=== PATIENT | male | born 1950 | race Caucasian/White ===

== ENCOUNTER 2016-08-16 09:25 | Emergency (ER) | payer MEDICARE, BC ==
--- NOTE | 2016-08-16 10:25 | ERPHSYRPT ---
- History of Present Illness Time Seen by Provider: 08/16/16 10:10 Source: patient Exam Limitations: no limitations Patient Subjective Stated Complaint: PT HERE FOR PAIN TO BOTTOM OF RIGHT FOOT, NO INJURY NOTED. PAIN SINCE LAST NIGHT Triage Nursing Assessment: PT HAS NO BRUISING OR ABRSIONS NOTED TO RIGHT FOOT, SLIGHT SWELLING Physician History: Walked in tennis shoes at festival yesterday. No known trauma or insect bite. Occurred: yesterday Quality: constant, sharpness Severity of Pain-Max: mild Severity of Pain-Current: mild Lower Extremities Pain: foot: right (to ball of foot) Modifying Factors: Improves With: movement (or walking worsens) Associated Symptoms: none Allergies/Adverse Reactions: No Known Drug Allergies Allergy (Verified 08/16/16 09:48) Home Medications: Cilostazol 100 mg PO BID 07/26/16 [History] Glipizide 10 mg [Glucotrol 10 MG] 10 mg PO UD 07/26/16 [History] Ibuprofen 800 mg PO BID 07/26/16 [History] Insulin Glargine [Lantus Insulin] 45 unit SQ DAILY 07/26/16 [History] Liraglutide [Victoza 2-Rashard] 1.2 mg SQ DAILY 07/26/16 [History] Loratadine 10 mg [Claritin 10 mg] 10 mg PO DAILY PRN 07/26/16 [History] Metformin HCl 500 mg [Glucophage 500 MG] 500 mg PO BID 07/26/16 [History] Hx Influenza Vaccination/Date Given: Yes Hx Pneumococcal Vaccination/Date Given: No Immunizations Up to Date: Yes - Review of Systems Constitutional: No Symptoms Eyes: No Symptoms Ears, Nose, & Throat: No Symptoms Respiratory: No Symptoms Cardiac: No Symptoms Abdominal/Gastrointestinal: No Symptoms Genitourinary Symptoms: No Symptoms Musculoskeletal: No Symptoms Neurological: No Symptoms Psychological: No Symptoms Endocrine: No Symptoms Hematologic/Lymphatic: No Symptoms - Past Medical History Pertinent Past Medical History: Yes Neurological History: Peripheral Neuropathy Cardiac History: Congenital Heart Disease Endocrine Medical History: Diabetes Type II GI Medical History: Gallbladder Disease Other Medical History: VASCULAR PROBLEMS TO LEFT - Past Surgical History Past Surgical History: Yes Cardiac: Cardiac Catheterization, Cardiac Stent Musculoskeletal: Orthopedic Surgery Other Surgical History: BILAT KNEE, ANKLE ,ELBOWS.SHOULDER, WRIST - Social History Smoking Status: Current every day smoker Exposure to second hand smoke: Yes Drug Use: none Patient Lives Alone: No - Nursing Vital Signs Nursing Vital Signs: Initial Vital Signs Temperature 98.0 F Pulse Rate 66 Respiratory Rate 16 Blood Pressure [] 131/76 Pain Intensity 5 - Physical Exam General Appearance: mild distress Eyes, Ears, Nose, Throat Exam: normal ENT inspection, pharynx normal Neck Exam: normal inspection, non-tender, supple, full range of motion Cardiovascular/Respiratory Exam: chest non-tender, normal breath sounds Gastrointestinal/Abdominal Exam: non-tender, soft Hips Exam: bilateral: non-tender, normal range of motion, no evidence of injury Legs Exam: bilateral leg: non-tender, normal inspection, normal range of motion , no evidence of injury Knees Exam: bilateral knee: non-tender, normal inspection, normal range of motion, no evidence of injury Ankle Exam: bilateral ankle: non-tender, normal inspection, normal range of motion, no evidence of injury Foot Exam: right foot: non-tender, normal inspection, normal range of motion, no evidence of injury, left foot: pain, soft tissue tenderness, swelling Neuro/Tendon Exam: normal motor functions, normal tendon functions, responds to pain, no evidence tendon injury Mental Status Exam: alert, oriented x 3, cooperative Skin Exam: normal color, warm, dry SpO2 Interpretation: normal SpO2: 98 Oxygen Delivery: Room Air - Course Nursing assessment & vital signs reviewed: Yes - Radiology Exams foot X-ray Interpretation: Teleradiologist Report, Negative, No Fracture Ordered Tests: Active Orders 24 hr Category Date Time Status FOOT (2 VIEWS) Stat Exams 08/16/16 10:21 Completed - Progress Progress: unchanged Will see patient in: office (with PCP 1 week) Counseled pt/family regarding: diagnosis, need for follow-up, rad results - Departure Time of Disposition: 11:00 Departure Disposition: Home Clinical Impression: Contusion of foot Qualifiers: Encounter type: initial encounter Laterality: right Qualified Code(s): S90.31XA - Contusion of right foot, initial encounter Condition: Stable Critical Care Time: No
--- NOTE | 2016-08-16 10:43 | XRAY ---
Indication: Ball of foot pain. No known injury. Comparison: None 2 nonweightbearing views of the right foot demonstrates small navicular accessory ossicle. No other bony, articular, or soft tissue abnormalities.
[2016-08-16 11:29] VITALS: BP 123/79; PULSE 70; O2SAT 98
== END 2016-08-16 11:27 | disposition home or self-care (01) ==
LOC: ED 09:25
DX: S90.31XA Contusion of right foot, initial encounter (principal); S90.811A Abrasion, right foot, initial encounter; E11.9 Type 2 diabetes mellitus without complications
CPT/HCPCS: 73620; 99282

== ENCOUNTER 2017-06-07 04:53 | Emergency (ER) | payer MEDICARE, BC ==
[2017-06-07 05:19] VITALS: O2SAT 99
[2017-06-07] MEDS ORDERED: ZOFRAN ODT 4 MG PO ONE (05:35)
--- NOTE | 2017-06-07 05:35 | ERPHSYRPT ---
- History of Present Illness Time Seen by Provider: 06/07/17 05:25 Source: patient Exam Limitations: no limitations Patient Subjective Stated Complaint: pt states he has been experiencing flank pain and nausea since 06/04/17. pt has more catheter in place and states feeling the urge of needing to urinate and difficulting with urinating. Triage Nursing Assessment: pt PERRLA. pt complaint of headache. lung sounds rubbing not clearing with cough. heart sounds strong. pt chronic a-fib. bowel sounds present x4. tender on right side with palpatation. tender lower abdomen with palpatation. slight distention of lower abd/pelvic area noted. Physician History: The patient is a 67-year-old male with his complaining of nausea, chills, and the urge to urinate. The patient is a poor historian. 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 At that time a More catheter is placed. He's had a More catheter ever since. He had a replacement of the More catheter at [facility] ER or days ago. Since then he is been nauseated, chills, and felt the urge to urinate. He states that when he lays down and bears down he is able to urinate to the More catheter. His past medical history is significant for enlarged prostate, diabetes, coronary artery disease, left leg amputation. Timing/Duration: day(s) (3), gradual onset Severity: mild Modifying Factors: Improves With: nothing Associated Symptoms: nausea, chills, other (back pain) Allergies/Adverse Reactions: No Known Drug Allergies Allergy (Verified 08/16/16 09:48) Home Medications: Cilostazol 100 mg PO BID 07/26/16 [History] Glipizide 10 mg [Glucotrol 10 MG] 10 mg PO UD 07/26/16 [History] Ibuprofen 800 mg PO BID 07/26/16 [History] Insulin Glargine [Lantus Insulin] 45 unit SQ DAILY 07/26/16 [History] Liraglutide [Victoza 2-Rashard] 1.2 mg SQ DAILY 07/26/16 [History] Loratadine 10 mg [Claritin 10 mg] 10 mg PO DAILY PRN 07/26/16 [History] Metformin HCl 500 mg [Glucophage 500 MG] 500 mg PO BID 07/26/16 [History] Hx Tetanus, Diphtheria Vaccination/Date Given: Yes Hx Influenza Vaccination/Date Given: Yes Hx Pneumococcal Vaccination/Date Given: Yes Immunizations Up to Date: Yes - Review of Systems Constitutional: Chills Eyes: No Symptoms Ears, Nose, & Throat: No Symptoms Respiratory: No Cough, No Dyspnea Cardiac: No Chest Pain, No Edema, No Syncope Abdominal/Gastrointestinal: Abdominal Pain, Nausea, No Vomiting Genitourinary Symptoms: Urgency, Urinary Retention Musculoskeletal: No Back Pain, No Neck Pain Skin: No Rash Neurological: No Dizziness, No Focal Weakness, No Sensory Changes Psychological: No Symptoms Endocrine: No Symptoms Hematologic/Lymphatic: No Symptoms Immunological/Allergic: No Symptoms All Other Systems: Reviewed and Negative - Past Medical History Pertinent Past Medical History: Yes Neurological History: Peripheral Neuropathy ENT History: No Pertinent History Cardiac History: Congenital Heart Disease Respiratory History: No Pertinent History, COPD Endocrine Medical History: Diabetes Type II Musculoskeletal History: Other GI Medical History: Gallbladder Disease History: No Pertinent History Psycho-Social History: Depression Male Reproductive Disorders: No Pertinent History Other Medical History: VASCULAR PROBLEMS TO LEFT, right shoulder joint problems. - Past Surgical History Past Surgical History: Yes Neuro Surgical History: No Pertinent History Cardiac: Cardiac Catheterization, Cardiac Stent Respiratory: No Pertinent History Gastrointestinal: No Pertinent History Musculoskeletal: Amputation, Orthopedic Surgery Other Surgical History: BILAT KNEE, ANKLE ,ELBOWS.SHOULDER, WRIST, left above the knee ampulatation - Social History Smoking Status: Current every day smoker How long have you smoked: 52 years Exposure to second hand smoke: Yes Drug Use: none Patient Lives Alone: No - Nursing Vital Signs Nursing Vital Signs: Initial Vital Signs Temperature 98.3 F 06/07/17 05:00 Pulse Rate 85 06/07/17 05:00 Respiratory Rate 18 06/07/17 05:00 Blood Pressure 136/68 06/07/17 05:00 O2 Sat by Pulse Oximetry 99 06/07/17 05:00 Pain Scale Pain Intensity 7 - Physical Exam General Appearance: no apparent distress, alert Eye Exam: PERRL/EOMI, eyes nml inspection Ears, Nose, Throat Exam: normal ENT inspection, TMs normal, pharynx normal, moist mucous membranes Neck Exam: normal inspection, non-tender, supple, full range of motion Respiratory Exam: normal breath sounds, lungs clear, No respiratory distress Cardiovascular Exam: regular rate/rhythm, normal heart sounds, normal peripheral pulses Gastrointestinal/Abdomen Exam: tenderness (suprapubic) Rectal Exam: not done Back Exam: normal inspection, normal range of motion, No CVA tenderness, No vertebral tenderness Extremity Exam: normal range of motion, pelvis stable, other (above the knee left leg amputation.) Neurologic Exam: alert, oriented x 3, cooperative, normal mood/affect, nml cerebellar function, nml station & gait, sensation nml, No motor deficits Skin Exam: normal color, warm, dry, No rash Lymphatic Exam: No adenopathy SpO2 Interpretation: normal SpO2: 99 Oxygen Delivery: Room Air Ordered Tests: Active Orders 24 hr Category Date Time Status More [Catheter-[place] More] STAT Care 06/07/17 05:41 Active CULTURE,URINE Stat Lab 06/07/17 05:35 Received UA W/ MICROSCOPIC Stat Lab 06/07/17 05:35 Completed Medication Summary Discontinued Medications Generic Name Dose Route Start Last Admin Trade Name Delroy PRN Reason Stop Dose Admin Ceftriaxone Sodium 1,000 mg 06/07/17 06:43 Rocephin 1000 Mg Inj IM 06/07/17 06:44 STAT ONE Ketorolac Tromethamine 60 mg 06/07/17 06:43 Toradol 30 Mg Injection IM 06/07/17 06:44 STAT ONE Ondansetron HCl 4 mg 06/07/17 05:35 06/07/17 05:40 Zofran Odt 4 Mg PO 06/07/17 05:36 4 mg STAT ONE Administration Ondansetron HCl Confirm 06/07/17 05:39 Zofran Odt 4 Mg Administered 06/07/17 05:40 Dose 4 mg .ROUTE .STK-MED ONE Lab/Rad Data: Laboratory Results 06/07/17 Range/Units 05:35 Ur Collection Type CLEAN CATCH Urine Color YELLOW (YELLOW) Urine Appearance CLOUDY (CLEAR) Urine pH 5.0 (5-6) Ur Specific [place] 1.025 (1.005-1.025) Urine Protein TRACE (Negative) Urine Ketones NEGATIVE (NEGATIVE) Urine Blood NEGATIVE (0-5) Cuco/ul Urine Nitrite POSITIVE (NEGATIVE) Urine Bilirubin NEGATIVE (NEGATIVE) Urine Urobilinogen NORMAL (0-1) mg/dL Ur Leukocyte Esterase 2+ (NEGATIVE) Urine Microscopic RBC 5-10 (0-2) /HPF Urine Microscopic WBC 10-15 (0-5) /HPF Ur Epithelial Cells FEW (FEW) /HPF Urine Bacteria PACKED (NEGATIVE) /HPF Urine Mucus MODERATE (NEGATIVE) /HPF Urine Culture Reflexed YES (NO) Urine Glucose 250 (NEGATIVE) mg/dL Specimen Received 06-07-17 0600 - Progress Progress: improved Counseled pt/family regarding: lab results, diagnosis, need for follow-up - Departure Time of Disposition: 06:45 Departure Disposition: Home Clinical Impression: UTI (urinary tract infection) Condition: Stable Critical Care Time: No Referrals: KRALA RAI [Primary Care Provider] - Additional Instructions: You have a UTI. You were given Rocephin 1 g and Toradol 60 mg by IM in the ER. Take Keflex 500 mg 4 times a day for 7 days. Follow-up with your primary care doctor within 2-3 days. Prescriptions: Cephalexin 500 mg PO QID #28 capsule
[2017-06-07] MEDS ORDERED: ZOFRAN ODT 4 MG ONE (05:39)
[2017-06-07 06:26] VITALS: BP 122/62; PULSE 76
[2017-06-07 06:31] LABS: Appearance CLOUDY (CLEAR); Bilirubin NEGATIVE (NEGATIVE); Blood NEGATIVE Ery/ul (0-5); Glucose 250 mg/dL (NEGATIVE); Ketones NEGATIVE (NEGATIVE); Leukocyte Esterase 2+ (NEGATIVE); Nitrite POSITIVE (NEGATIVE); Protein,Urine Dip TRACE (Negative); Specific Gravity 1.025 (1.005-1.025); Urobilinogen NORMAL mg/dL (0-1)
[2017-06-07 06:39] LABS: Bacteria PACKED /HPF (NEGATIVE); Epithelial Cells FEW /HPF (FEW); Mucus MODERATE /HPF (NEGATIVE)
[2017-06-07] MEDS ORDERED: TORAdol 30 mg Injection IM ONE (06:43)
[2017-06-07] MEDS ORDERED: Rocephin 1000 MG INJ IM ONE (06:43)
[2017-06-07] MEDS ORDERED: Rocephin 1000 MG INJ ONE (06:44)
[2017-06-07] MEDS ORDERED: TORAdol 30 mg Injection ONE (06:47)
== END 2017-06-07 07:08 | disposition home or self-care (01) ==
LOC: ED 04:53
DX: N39.0 Urinary tract infection, site not specified (principal); E11.9 Type 2 diabetes mellitus without complications; I25.10 Atherosclerotic heart disease of native coronary artery without angina pectoris; Z89.9 Acquired absence of limb, unspecified; Z79.899 Other long term (current) drug therapy; Z79.84 Long term (current) use of oral hypoglycemic drugs; Z79.4 Long term (current) use of insulin
CPT/HCPCS: 96372 ×2; 99284; 51702; 81000; 87086; P9612; 87077; 87186; J0696; J1885; Q0162

== ENCOUNTER 2017-08-03 11:30 | Emergency (ER) | payer MEDICARE, BC ==
[2017-08-03 11:42] VITALS: BP 130/68; PULSE 86; O2SAT 99
[2017-08-03] MEDS ORDERED: Adacel Vial IM ONE ×2 (11:56→12:03)
[2017-08-03] MEDS ORDERED: BACTRIM DS TABLET PO STA (11:57)
[2017-08-03] MEDS ORDERED: BACTRIM DS TABLET PO ONE (12:02)
--- NOTE | 2017-08-03 12:03 | ERPHSYRPT ---
- History of Present Illness Time Seen by Provider: 08/03/17 11:58 Source: patient Patient Subjective Stated Complaint: Right Lower Leg Abrasion after falling on Tuesday. Triage Nursing Assessment: PT presents to the ED with complaints of abrasion to right lower leg. Pt states onset on Tuesday. Pt states redness began yesterday and continuied today. Pt states no other complaints at this time. Pt is A&O x4, no distress noted, skin PWD. Physician History: mild ache pain of the right lower leg since accidental abrasion on Tuesday, now red and tender, no fever, hx dm and left aka, no other injury Allergies/Adverse Reactions: No Known Drug Allergies Allergy (Verified 08/16/16 09:48) Home Medications: Cilostazol 100 mg PO BID 07/26/16 [History] Glipizide 10 mg [Glucotrol 10 MG] 10 mg PO UD 07/26/16 [History] Ibuprofen 800 mg PO BID 07/26/16 [History] Insulin Glargine [Lantus Insulin] 45 unit SQ DAILY 07/26/16 [History] Loratadine 10 mg [Claritin 10 mg] 10 mg PO DAILY PRN 07/26/16 [History] Metformin HCl 500 mg [Glucophage 500 MG] 500 mg PO BID 07/26/16 [History] Amiodarone HCl 200 mg PO DAILY 08/03/17 [History] Digoxin 250 mcg PO DAILY 08/03/17 [History] Hx Tetanus, Diphtheria Vaccination/Date Given: Yes Hx Influenza Vaccination/Date Given: Yes Hx Pneumococcal Vaccination/Date Given: Yes Immunizations Up to Date: Yes - Review of Systems Constitutional: No Fever Respiratory: No Dyspnea Skin: Cellulitis Neurological: No Dizziness - Past Medical History Pertinent Past Medical History: Yes Neurological History: Peripheral Neuropathy ENT History: No Pertinent History Cardiac History: Congenital Heart Disease Respiratory History: No Pertinent History, COPD Endocrine Medical History: Diabetes Type II Musculoskeletal History: Other GI Medical History: Gallbladder Disease History: No Pertinent History Psycho-Social History: Depression Male Reproductive Disorders: No Pertinent History Other Medical History: VASCULAR PROBLEMS TO LEFT, right shoulder joint problems. - Past Surgical History Past Surgical History: Yes Neuro Surgical History: No Pertinent History Cardiac: Cardiac Catheterization, Cardiac Stent Respiratory: No Pertinent History Gastrointestinal: No Pertinent History Musculoskeletal: Amputation, Orthopedic Surgery Other Surgical History: BILAT KNEE, ANKLE ,ELBOWS.SHOULDER, WRIST, left above the knee ampulatation - Social History Smoking Status: Current every day smoker How long have you smoked: 42 years Exposure to second hand smoke: Yes Drug Use: none Patient Lives Alone: No - Nursing Vital Signs Nursing Vital Signs: Initial Vital Signs Temperature 98.2 F 08/03/17 11:39 Pulse Rate 86 08/03/17 11:39 Respiratory Rate 16 08/03/17 11:39 Blood Pressure 130/68 08/03/17 11:39 O2 Sat by Pulse Oximetry 99 08/03/17 11:39 Pain Scale Pain Intensity 0 - Physical Exam General Appearance: no apparent distress Extremity Exam: other (5cm red erythema noncircumferential anterior right lower mid leg, no streaks, sen and pulses intact, nontender bony leg) Neurologic Exam: alert, oriented x 3, cooperative Skin Exam: warm, dry SpO2 Interpretation: normal SpO2: 99 Oxygen Delivery: Room Air - Course Nursing assessment & vital signs reviewed: Yes - Progress Progress Note: 08/03/17 12:00 see your doctor Counseled pt/family regarding: need for follow-up - Departure Time of Disposition: 12:01 Departure Disposition: Home Clinical Impression: Cellulitis Qualifiers: Site of cellulitis: extremity Site of cellulitis of extremity: lower extremity Laterality: right Qualified Code(s): L03.115 - Cellulitis of right lower limb Condition: Stable Critical Care Time: No Referrals: KARLA RAI [Primary Care Provider] - Additional Instructions: see your doctor, return if worse, bactrim ds, tylenol Prescriptions: Smz/Tmp Ds Tablet [Bactrim Ds Tablet] 1 udtab PO BID #20 tablet
== END 2017-08-03 12:46 | disposition home or self-care (01) ==
LOC: ED 11:30
DX: L03.115 Cellulitis of right lower limb (principal); M79.661 Pain in right lower leg; S80.811A Abrasion, right lower leg, initial encounter; W19.XXXA Unspecified fall, initial encounter
CPT/HCPCS: 90471; 90715; 99283; A9270-GY

== ENCOUNTER 2017-08-13 15:09 | Emergency (ER) | payer MEDICARE, BC ==
[2017-08-13] MEDS ORDERED: MORPHINE SULFATE 10 MG/ML IV ONE (15:48)
[2017-08-13] MEDS ORDERED: Zofran 4 MG/2 ML VIAL IV ONE (15:48)
--- NOTE | 2017-08-13 15:56 | ERPHSYRPT ---
- History of Present Illness Time Seen by Provider: 08/13/17 15:30 Source: patient Exam Limitations: clinical condition Patient Subjective Stated Complaint: states started having blood in urine this am. also having right flank pain Triage Nursing Assessment: to room per private wheelchair. patient has AKA left leg. skin w/d, color sallow. old wound noted to right uribe area. patient states he is unable to void at this time. Physician History: PATIENT WITH A HISTORY OF KIDNEY STONES, TYPE 2 DIABETES COMPLAINS OF LEFT FLANK PAIN ASSOCIATED WITH EPISODES OF HEMATURIA TODAY. DENIES FEVER, RADIATION OF PAIN AROUND TO LEFT LOWER ABDOMEN, NAUSES OR EMESIS. Timing/Duration: today Activites at Onset: none Quality: throbbing Onset Location: left flank Severity of Pain-Max: moderate Severity of Pain-Current: moderate Modifying Factors: Improves With: other (HEMATURIA) Associated Symptoms: other (HEMATURIA) Prior abdominal problems: similar symptoms Sexual intercourse history: non-contributory Allergies/Adverse Reactions: No Known Drug Allergies Allergy (Verified 08/16/16 09:48) Home Medications: Cilostazol 100 mg PO BID 07/26/16 [History] Glipizide 10 mg [Glucotrol 10 MG] 10 mg PO UD 07/26/16 [History] Ibuprofen 800 mg PO BID 07/26/16 [History] Insulin Glargine [Lantus Insulin] 45 unit SQ DAILY 07/26/16 [History] Loratadine 10 mg [Claritin 10 mg] 10 mg PO DAILY PRN 07/26/16 [History] Metformin HCl 500 mg [Glucophage 500 MG] 500 mg PO BID 07/26/16 [History] Amiodarone HCl 200 mg PO DAILY 08/03/17 [History] Digoxin 250 mcg PO DAILY 08/03/17 [History] Hx Tetanus, Diphtheria Vaccination/Date Given: Yes Hx Influenza Vaccination/Date Given: Yes Hx Pneumococcal Vaccination/Date Given: Yes - Past Medical History Pertinent Past Medical History: Yes Neurological History: Peripheral Neuropathy ENT History: No Pertinent History Cardiac History: Congenital Heart Disease Respiratory History: No Pertinent History, COPD Endocrine Medical History: Diabetes Type II Musculoskeletal History: Other GI Medical History: Gallbladder Disease History: No Pertinent History Psycho-Social History: Depression Male Reproductive Disorders: No Pertinent History Other Medical History: VASCULAR PROBLEMS TO LEFT, right shoulder joint problems. - Past Surgical History Past Surgical History: Yes Neuro Surgical History: No Pertinent History Cardiac: Cardiac Catheterization, Cardiac Stent Respiratory: No Pertinent History Gastrointestinal: No Pertinent History Musculoskeletal: Amputation, Orthopedic Surgery Other Surgical History: BILAT KNEE, ANKLE ,ELBOWS.SHOULDER, WRIST, left above the knee ampulatation - Social History Smoking Status: Current every day smoker How long have you smoked: 52 Exposure to second hand smoke: No Drug Use: none Patient Lives Alone: No - Nursing Vital Signs Nursing Vital Signs: Initial Vital Signs Temperature 98.9 F 08/13/17 15:16 Pulse Rate 94 H 08/13/17 15:16 Respiratory Rate 16 08/13/17 15:16 Blood Pressure 122/76 08/13/17 15:16 O2 Sat by Pulse Oximetry 98 08/13/17 15:16 Pain Scale Pain Intensity 0 - Physical Exam General Appearance: no apparent distress, alert Eye Exam: PERRL/EOMI Ears, Nose, Throat Exam: pharynx normal, moist mucous membranes Neck Exam: normal inspection, supple Respiratory Exam: normal breath sounds, lungs clear Cardiovascular Exam: regular rate/rhythm, No edema Gastrointestinal/Abdomen Exam: soft, normal bowel sounds, No tenderness Back Exam: normal inspection, CVA tenderness (MODERATE LEFT CVA TENDERNESS) Extremity Exam: normal inspection, normal range of motion, No pedal edema Neurologic Exam: alert, oriented x 3, cooperative, sensation nml, No motor deficits Skin Exam: normal color, warm, dry, No rash SpO2: 98 Oxygen Delivery: Room Air - CT Exams Abdomen CT Interpretation: Tele-radiologist Report (INFLAMED RIGHT BLADDER WALL DIVERTICULUM APPEARS TO CONTAIN A SMALL VOLUME OF HEMORRHAGIC PRODUCTS. CIRRHOSIS WITH EVIDENCE OF PORTAL HYPERTENSION) Ordered Tests: Active Orders 24 hr Category Date Time Status ACCUCHECK [Accucheck] STAT Care 08/13/17 18:29 Active IV Insertion STAT Care 08/13/17 15:48 Active ABDOMEN AND PELVIS W/0 CONTRAS [CT] Stat Exams 08/13/17 15:49 Taken BLOOD CULTURE Stat Lab 08/13/17 16:34 Received BMP Stat Lab 08/13/17 16:20 Completed CBC W DIFF Stat Lab 08/13/17 16:20 Completed CULTURE,URINE Stat Lab 08/13/17 16:54 Received UA W/ MICROSCOPIC Stat Lab 08/13/17 16:54 Completed Medication Summary Generic Name Dose Route Start Last Admin Trade Name Delroy PRN Reason Stop Dose Admin Sodium Chloride 1,000 mls @ 500 mls/hr 08/13/17 16:00 08/13/17 16:14 Sodium Chloride 0.9% 1000 Ml IV 09/12/17 15:59 500 mls/hr .Q2H IRENE Administration Discontinued Medications Generic Name Dose Route Start Last Admin Trade Name Delroy PRN Reason Stop Dose Admin Levofloxacin/Dextrose 500 mg in 100 mls @ 100 mls/hr 08/13/17 17:19 08/13/17 17:36 Levofloxacin 500mg/100ml D5w IV 08/13/17 18:18 100 mls/hr STAT STA 100 mls/hr Administration Levofloxacin/Dextrose Confirm 08/13/17 17:34 Levofloxacin 500mg/100ml D5w Administered 08/13/17 17:35 Dose 500 mg in 100 mls @ ud IV .STK-MED ONE Insulin Human Regular 6 unit 08/13/17 16:55 08/13/17 17:36 Novolin R IV 08/13/17 16:56 6 unit STAT ONE Administration Insulin Human Regular Confirm 08/13/17 17:34 Novolin R Administered 08/13/17 17:35 Dose 6 unit .ROUTE .STK-MED ONE Morphine Sulfate 8 mg 08/13/17 15:48 08/13/17 16:14 Morphine Sulfate 10 Mg/Ml IV 08/13/17 15:49 8 mg STAT ONE Administration Morphine Sulfate Confirm 08/13/17 15:59 Morphine Sulfate 10 Mg/Ml Administered 08/13/17 16:00 Dose 10 mg .ROUTE .STK-MED ONE Ondansetron HCl 4 mg 08/13/17 15:48 08/13/17 16:14 Zofran 4 Mg/2 Ml Vial IV 08/13/17 15:49 4 mg STAT ONE Administration Ondansetron HCl Confirm 08/13/17 15:58 Zofran 4 Mg/2 Ml Vial Administered 08/13/17 15:59 Dose 4 mg .ROUTE .STK-MED ONE Lab/Rad Data: Laboratory Result Diagrams 08/13/17 16:20 08/13/17 16:20 Laboratory Results 06/02/18 06/02/18 06/02/18 Range/Units 16:54 16:20 16:20 WBC 8.1 (4.0-10.5) K/mm3 RBC 4.23 (4.1-5.6) M/mm3 Hgb 13.0 (12.5-18.0) gm/dl Hct 37.3 L (42-50) % MCV 88.2 (78-100) fl MCH 30.7 (26-32) pg MCHC 34.9 (32-36) g/dl RDW 14.8 H (11.5-14.0) % Plt Count 233 (150-450) K/mm3 MPV 9.4 (6-9.5) fl Gran % 73.3 H (36.0-66.0) % Eos # (Auto) 0.15 (0-0.5) Absolute Lymphs (auto) 1.29 (1.0-4.6) Absolute Monos (auto) 0.66 (0.0-1.3) Lymphocytes % 15.9 L (24.0-44.0) % Monocytes % 8.1 (0.0-12.0) % Eosinophils % 1.8 (0.00-5.0) % Basophils % 0.9 (0.0-0.4) % Absolute Granulocytes 5.96 (1.4-6.9) Basophils # 0.07 (0-0.4) Sodium 131 L (137-145) mmol/L Potassium 3.7 (3.5-5.1) mmol/L Chloride 99 (98-107) mmol/L Carbon Dioxide 27 (22-30) mmol/L Anion Gap 8.7 (5-15) MEQ/L BUN 15 (9-20) mg/dL Creatinine 0.62 L (0.66-1.25) mg/dL Estimated GFR > 60.0 ML/MIN Glucose 457 H (74-106) mg/dL Calcium 9.0 (8.4-10.2) mg/dL Ur Collection Type VOID Urine Color RED (YELLOW) Urine Appearance CLOUDY (CLEAR) Urine pH 7.0 (5-6) Ur Specific [place] 1.015 (1.005-1.025) Urine Protein 30 (Negative) Urine Ketones NEGATIVE (NEGATIVE) Urine Blood 250 (0-5) Cuco/ul Urine Nitrite POSITIVE (NEGATIVE) Urine Bilirubin NEGATIVE (NEGATIVE) Urine Urobilinogen NORMAL (0-1) mg/dL Ur Leukocyte Esterase 2+ (NEGATIVE) Urine Microscopic RBC >100 (0-2) /HPF Urine Microscopic WBC 50-100 (0-5) /HPF Urine Bacteria MODERATE (NEGATIVE) /HPF Urine Culture Reflexed YES (NO) Urine Glucose 1000 (NEGATIVE) mg/dL Specimen Received 08/13/17 6465 - Progress Progress Note: 08/13/17 15:55 IV NORMAL SALINE 500ML/HR, ZOFRAN 4MG, MORPHINE 4MG IV, HUMULIN REGULAR INSULIN 6 UNITS IV FOR GLUCOSE 457, LEVAQUIN 500MG IVPB 08/13/17 17:36 - Departure Time of Disposition: 18:35 Departure Disposition: Home Clinical Impression: ACUTE CYSTITIS, BLADDER DIVERTICULUM, HYPERGLYCEMIA Condition: Stable Critical Care Time: No Referrals: KARLA RAI [Primary Care Provider] - Additional Instructions: ANTIBIOTIC LEVAQUIN 500MG DAILY FOR 10 DAYS. DRINK PLENTY OF FLUIDS. ULTRAM 50MG EVERY 6 HOURS NEEDED FOR PAIN. CONSULT YOUR PRIMARY CARE PROVIDER FOR REFERRAL TO UROLOGIST. Prescriptions: Tramadol HCl 50 mg [Ultram 50 mg] 50 mg PO Q6HPRN PRN #10 tablet PRN Reason: Pain Levofloxacin [Levaquin] 500 mg PO DAILY #10 tablet
[2017-08-13] MEDS ORDERED: Zofran 4 MG/2 ML VIAL ONE (15:58)
[2017-08-13] MEDS ORDERED: Sodium Chloride 0.9% 1000 ML 1,000 ML ONE (15:59)
[2017-08-13] MEDS ORDERED: MORPHINE SULFATE 10 MG/ML ONE (15:59)
[2017-08-13] MEDS ORDERED: Sodium Chloride 0.9% 1000 ML 1,000 ML IV SCH (16:00)
[2017-08-13 16:27] LABS: BASOPHIL % 0.9 % (0.0-0.4); Basophil (Absolute #) 0.07 (0-0.4); Eosinophil % 1.8 % (0.00-5.0); Eosinophil (Absolute #) 0.15 (0-0.5); Granulocyte Absolute (ANC) 5.96 (1.4-6.9); Granulocytes % 73.3 % (36.0-66.0); Hematocrit 37.3 % (42-50); Lymphocyte (Absolute #) 1.29 (1.0-4.6); Lymphocytes % 15.9 % (24.0-44.0); Mean Cell Volume 88.2 fl (78-100); Mean Corpuscular Hemoglobin 30.7 pg (26-32); Mean Corpuscular Hgb Concent. 34.9 g/dl (32-36); Mean Platelet Volume 9.4 fl (6-9.5); Monocyte (Absolute #) 0.66 (0.0-1.3); Monocytes % 8.1 % (0.0-12.0); Platelet Count 233 K/mm3 (150-450); Red Blood Count 4.23 M/mm3 (4.1-5.6); Red Cell Distribution Width 14.8 % (11.5-14.0); White Blood Count 8.1 K/mm3 (4.0-10.5)
[2017-08-13 16:46] LABS: ANION GAP 8.7 MEQ/L (5-15); BLOOD UREA NITROGEN 15 mg/dL (9-20); CHLORIDE 99 mmol/L (98-107); Carbon Dioxide 27 mmol/L (22-30); Creatinine 1 0.62 mg/dL (0.66-1.25); Glucose 457 mg/dL (74-106); Potassium 3.7 mmol/L (3.5-5.1); SODIUM 131 mmol/L (137-145)
[2017-08-13] MEDS ORDERED: NovoLIN R IV ONE (16:55)
[2017-08-13 17:05] LABS: Appearance CLOUDY (CLEAR); Bilirubin NEGATIVE (NEGATIVE); Blood 250 Ery/ul (0-5); Glucose 1000 mg/dL (NEGATIVE); Ketones NEGATIVE (NEGATIVE); Leukocyte Esterase 2+ (NEGATIVE); Nitrite POSITIVE (NEGATIVE); Protein,Urine Dip 30 (Negative); Specific Gravity 1.015 (1.005-1.025); Urobilinogen NORMAL mg/dL (0-1)
[2017-08-13 17:06] LABS: Bacteria MODERATE /HPF (NEGATIVE); RBC >100 /HPF (0-2); WBC 50-100 /HPF (0-5)
[2017-08-13] MEDS ORDERED: Levofloxacin 500MG/100ML D5W 500 MG/100 ML BAG IV STA (17:19)
[2017-08-13] MEDS ORDERED: Levofloxacin 500MG/100ML D5W 500 MG/100 ML BAG IV ONE (17:34)
[2017-08-13] MEDS ORDERED: NovoLIN R ONE (17:34)
[2017-08-13 17:37] VITALS: O2SAT 98
[2017-08-13 18:36] VITALS: BP 121/66; PULSE 68
--- NOTE | 2017-08-13 20:08 | XRAY ---
Indication: Right flank pain. Hematuria. Multiple contiguous axial images obtained through the abdomen and pelvis without contrast using renal stone protocol. Comparison: None Lung bases demonstrates right base dependent atelectasis with tiny effusion. Minimal bibasilar fibrosis/scarring. Heart is not enlarged. No calculus or evidence for obstructive uropathy in either system. A few bilateral renal cysts, largest in the left upper pole measuring 4.2 cm. Urinary bladder is moderately distended with minimal wall thickening, possible cystitis. Also 2.4 cm right posterior bladder wall diverticulum with intraluminal densities possible degree. Noncontrasted stomach and bowel loops appear nonobstructed. Appendix not seen. No free fluid/air. 4-5 mm gallstone with borderline wall thickening. No abnormal biliary distention. Liver demonstrates micronodular margins favoring cirrhosis. Spleen is enlarged measuring 14.6 cm in greatest axial dimension. Main portal vein up to 19 mm in diameter, favoring portal hypertension. Bilateral adrenal hypertrophy. Remaining pancreas, ureters, and bladder appear unremarkable for noncontrast exam. Moderate aortoiliac calcifications without AAA. Additional faint bilateral renal artery calcifications. Osseous structures intact with moderate degenerative changes throughout the spine and old right lower rib fractures. Impression: 1. Negative renal calculus or evidence for obstructive uropathy. Bilateral renal cysts. 2. Minimal urinary bladder wall thickening. Rule out cystitis. Also right posterior bladder diverticulum. 3. Tiny gallstone with borderline wall thickening. Ultrasound may yield further information if clinically warranted. 4. Incidental cirrhosis, splenomegaly, and evidence for portal hypertension. Comment: Preliminary interpretation was made by [facility]. No discrepancy. CTDI 19.76
== END 2017-08-13 18:57 | disposition home or self-care (01) ==
LOC: ED 15:09
DX: N30.01 Acute cystitis with hematuria (principal); N32.3 Diverticulum of bladder; E11.65 Type 2 diabetes mellitus with hyperglycemia; R10.9 Unspecified abdominal pain; Z79.899 Other long term (current) drug therapy; Z79.4 Long term (current) use of insulin; Z79.84 Long term (current) use of oral hypoglycemic drugs; Z89.612 Acquired absence of left leg above knee
CPT/HCPCS: 36000; 36415; 74176; 80048; 81000; 82962; 85025; 87040; 87086; 96360; 96365; 96374; 96375; 99284; J1956; J2270; J2405; A9270-GY